=== PATIENT | male | born 1970 | race Caucasian/White ===

== ENCOUNTER 2019-05-21 13:16 | Emergency (ER) | payer MEDICAID ==
[~2019-05-21] VITALS: Ht 180.3 cm; Wt 70.8 kg
--- NOTE | 2019-05-21 13:22 | NUR ---
BIB 102, FOUND PASSED OUT ON THE GRASS, AROUSABLE, ADMITS SMOKING HEROIN, WAS GIVEN 2 SPRAYS NARC[facility] [employer] AND BAKER. TO ER BED 9, HOOKED TO MONITOR, AWAITING MD RODRIGUEZ.
--- NOTE | 2019-05-21 13:45 | NUR ---
KYLIE MOJICA AT BEDSIDE
--- NOTE | 2019-05-21 16:21 | NUR ---
patient awake, stood up and urinated.
--- NOTE | 2019-05-21 17:03 | NUR ---
PATIENT BACK TO BEING ASLEEP, EASILY AROUSABLE BY VOICE. HOOKED TO MONITOR. WILL CONTINUE TO MONITOR ACCORDINGLY
[2019-05-21 19:17] VITALS: BP 160/94
--- NOTE | 2019-05-21 19:22 | NUR ---
PT RECEIVED IN BED SLEEPING. ARROUSABLE BUT GOES BUIT TO SLEEP. UNABLE TO GET [id number] FROM PT. NO RESP DISTRESS NOTED.
[2019-05-21] MEDS ORDERED: IV NS 0.9% 1,000 ML BAG IV ONE (20:30)
--- NOTE | 2019-05-21 20:45 | NUR ---
SPOKE WITH HOWIE BALTAZAR AND KYLIE, AND NURSE THAT HIS NAME IS OLGA NELSON . REFUSES BLOOD DRAWS MEDICATION AND WANTS FOOD AND DRINK.
--- NOTE | 2019-05-21 23:47 | NUR ---
Patient is ambulatory. Steady gait, stable. Patient discharged to home in stable condition. Written and verbal after care instructions given. Patient verbalizes understanding of instruction.
== END 2019-05-22 00:20 | disposition home or self-care (01) ==
LOC: EDBD 13:18 → ER 13:18
DX: R40.4 Transient alteration of awareness (principal); T40.1X1A Poisoning by heroin, accidental (unintentional), initial encounter; Z59.0 Homelessness; Z88.2 Allergy status to sulfonamides; Z88.1 Allergy status to other antibiotic agents; Y92.89 Other specified places as the place of occurrence of the external cause
CPT/HCPCS: 99283; J7030; 82962-TC

== ENCOUNTER 2019-05-25 02:43 | Emergency (ER) | payer MEDICAID ==
--- NOTE | 2019-05-25 02:50 | NUR ---
CALLED FOR TRIAGE. PT STATE'S "I CHANGE MY MIND, I FEEL BETTER AND I DONT WANT TO BE SEEN ANYMORE". PT REFUSE TO BE TRAIGE AND WALKED OUR OF ER.
== END 2019-05-25 02:51 | disposition home or self-care (01) ==
LOC: ER 02:43
DX: Z53.21 Procedure and treatment not carried out due to patient leaving prior to being seen by health care provider (principal)